=== PATIENT | female | born 1995 | race Caucasian/White ===

== ENCOUNTER 2021-04-01 19:09 | Emergency (ER) | payer OTHER ==
[~2021-04-01] VITALS: Ht 172.7 cm; Wt 77.1 kg
--- NOTE | 2021-04-01 19:46 | NUR ---
BIBSELF C/O HEADACHE ON BACK OF HEAD AND SEEING "SPOTS" XMONTHS WORSE TODAY. PT ALERT AND ORIENTED X3. AMBULATORY WITH NON LABORED BREATHING.
[2021-04-01] MEDS ORDERED: CODE1CAP32 PO ×2 (20:12→20:14)
[2021-04-01 20:20] VITALS: BP 122/70
--- NOTE | 2021-04-01 20:20 | NUR ---
Patient discharged to home in stable condition. Written and verbal after care instructions given. Patient verbalizes understanding of instruction.
== END 2021-04-01 20:21 | disposition home or self-care (01) ==
LOC: ER 19:20
DX: R51.9 Headache, unspecified (principal)
CPT/HCPCS: 70450-TC